=== PATIENT | female | born 1960 | race Caucasian/White ===

== ENCOUNTER 2018-12-18 07:51 | Observation (INO) | payer OTHER ==
[2018-12-18] MEDS ORDERED: Nitroglycerin 2% Ointment 1 INCH/1 GM Packet ONE (08:10)
[2018-12-18 08:28] LABS: Bilirubin Negative (Negative); Blood, Urine Negative (Negative); Clarity CLEAR (Clear); Glucose, Urine (Dipstick) Negative (Negative); Leukocyte Negative (Negative); Nitrite Negative (Negative); Protein, Urine (Dipstick) Negative (Neg-Trace); Specific Gravity, Urine 1.004 (1.002-1.036); Urobilinogen 0.2 mg/dL (0.2-1.0)
[2018-12-18] MEDS ORDERED: Acetaminophen 325 MG TAB PO PRN (09:41)
[2018-12-18] MEDS ORDERED: Potassium Chloride 20 MEQ TAB PO SCH (09:45)
[2018-12-18 10:27] LABS: Cardiac Risk 3.7 (Less than 4.5)
[2018-12-18 11:02] VITALS: BMI 42.3
--- NOTE | 2018-12-18 12:59 | HP ---
CHIEF COMPLAINT: Chest pain. HISTORY OF PRESENT ILLNESS: The patient is a very pleasant 58-year-old female with history of hypertension, who presented to the hospital with complaint of chest pain. The patient stated that yesterday she was cleaning her home, started having a sharp substernal chest pain. Denies any radiation. The patient stated that she was burping quite a bit. The patient stated that she took Tums and other antacids to help relieve her pain. She stated that her pain actually did improve. However, this morning, the patient started having this sharp pain again, which concerned her, so she came into the ER for further evaluation. She again denied any certain radiation of the pain to her back or to her arms. The patient denies any fevers, chills, any nausea, vomiting, or diarrhea, or any diaphoresis. The patient denies any recent shortness of breath on ambulation either. PAST MEDICAL HISTORY: History of breast cancer, she is status post chemotherapy about 10 years ago and then she was on tamoxifen; and also history of hypertension. PAST SURGICAL HISTORY: She has had a double mastectomy; she has had a hysterectomy with only removal of one ovary, she still has her left ovary in; tonsillectomy; and hernia repair. ALLERGIES: SHE IS ALLERGIC TO VICODIN. MEDICATIONS: She has; 1. Lisinopril 20 mg daily. 2. Amlodipine 10 mg daily. 3. Aspirin 81 mg daily. SOCIAL HISTORY: She denies any alcohol use, drug use, or smoking history. FAMILY HISTORY: Her father had a bypass at the age of 60. Mother had dementia. REVIEW OF SYSTEMS: All negative except for the ones mentioned above in the HPI. PHYSICAL EXAMINATION: VITAL SIGNS: As of the following; her temperature is 98.8, blood pressure is 108/60, heart rate of 80, and 98% on room air. GENERAL: She is awake, alert, and oriented x3. Does not appear in any distress. CV: S1 and S2 present. No murmurs, rubs, or gallops. HEENT: Normocephalic and atraumatic. No lymphadenopathy. Pupils are equal and reactive to light. Her mucous membranes are nice and moist. RESPIRATORY: Lungs are clear to auscultation. No rhonchi or wheezes noted. ABDOMEN: Soft and nontender. Bowel sounds are present x2. EXTREMITIES: No edema. Pedal pulses are present x2. NEUROVASCULAR: No focal deficits noted. MUSCULOSKELETAL: No body aches or pains, no muscular pain noted. SKIN: Warm and dry. No cuts, lesions, or bruises noted. LABORATORY RESULTS: As of the following; sodium was 140, potassium was 3.3, BUN of 20, creatinine 0.86. Her LFTs were normal. Her troponin x2 were negative. Her lipase was 19. Her LDL was 117 and her HDL was 47. She did also have a chest x-ray, in which no acute abnormalities noted. ASSESSMENT AND PLAN: The patient is a very pleasant 58-year-old female, who presents to the hospital with chest pain. 1. Atypical chest pain. We will also check a D-dimer. In this patient, the differential includes coronary artery disease versus gastroesophageal reflux disease versus possible PE; however, in this patient, she has also had chemotherapy and had a double mastectomy about 10 years ago, she states that she has not had an echocardiogram since after her chemotherapy that has been about 10 years, also she has never had a stress test, I will trend her troponins x3. If they are negative, I will stress her. Also, I will do an echocardiogram. Her EKG did have some indication of prolonged QTc, however, appears to be stable. Also, D-dimer is valid in this patient since her chest pain was very sharp in nature. I will also go ahead and continue her home medications. In the ER, it was noted that the patient's blood pressure was really elevated. However, upon talking to the patient, the patient stated that the cuff was small and it was placed on her forearm rather than her arm; however, her readings while I was in the room were stable. 2. History of hypertension. We will continue her home medications. 3. Obesity. The patient has been working out and has been able to sustain her heart rate at 150 and she does not have any chest pain or chest tightness when she is working out. 4. Deep venous thrombosis prophylaxis. We will put the patient on SCDs and also subcu Lovenox. Job ID: [id number]
[2018-12-19] MEDS ORDERED: Lisinopril 20 MG TAB PO SCH (09:00)
[2018-12-19] MEDS ORDERED: Enoxaparin Sodium 40 MG/0.4 ML SYRINGE SC SCH (09:00)
--- NOTE | 2018-12-19 11:52 | NM ---
CARDIAC SPECT: HISTORY: A 58-year-old female with chest pain, hypertension, family history of coronary artery disease. TECHNIQUE: A myocardial perfusion scan was performed using the single-isotope 2-day protocol with 33 Technetium 99m sestamibi injected intravenously for the stress and rest images. Pharmacologic stress with adeno sine is monitored and interpreted by Sheila Pardo PA-C. FINDINGS: Fairly homogeneous tracer distribution is seen on the myocardial segments on stress and rest images w ithout fixed or reversible defects. GATED SPECT LVEF: 57%. WALL MOTION EXAM: Normal. IMPRESSION: Normal myocardial perfusion scan. POS: C
[2018-12-19 12:28] VITALS: BP 136/84; TEMP 97.3
--- NOTE | 2018-12-19 23:43 | DIS ---
DATE OF ADMISSION: 12/18/2018 DATE OF DISCHARGE: 12/19/2018 DISCHARGE DIAGNOSES: 1. Atypical chest pain. 2. Hypertension. 3. . HOSPITAL COURSE: The patient is a very pleasant 58-year-old female with history of breast cancer, status post bilateral mastectomy and chemotherapy about 10 to 15 years ago, who presented to the hospital with complaints of chest pain. The patient described her chest pain as a very sharp chest pain. Her troponins x3 were negative. We ordered a D-dimer. D-dimer was negative. She also had an echocardiogram, which indicated a normal EF of 50% to 55% with just some mild sclerotic aortic valve. She also had a stress test perfusion study, which was negative. The patient was discharged home. She will follow up with her primary care. PHYSICAL EXAMINATION: VITAL SIGNS: As of the following; temperature 97.3, pulse 62, respirations 20, O2 saturation 99% on room air, and blood pressure 136/84. GENERAL: She is awake, alert, and oriented x3. Does not appear in any distress. CV: S1, S2 present. No murmurs, rubs, or gallops. ABDOMEN: Soft and nontender. Bowel sounds are present. EXTREMITIES: No edema. Pedal pulses are present x2. MEDICATIONS: Her discharge home medications are as of the following; 1. Wellbutrin 1 tablet p.o. daily. 2. Aspirin 81 mg daily. 3. Amlodipine 10 mg daily. 4. Lisinopril 20 mg daily. Again, the patient will be discharged home. She will follow up with her primary care doctor. All the tests were negative. Job ID: [id number]
== END 2018-12-19 14:27 | disposition home or self-care (01) ==
LOC: ERS 07:51 → 2SW 10:00
PROVIDERS: ADMIT Internal Medicine; ATTEND Internal Medicine
DX: R07.89 Other chest pain (principal); I10 Essential (primary) hypertension; Z85.3 Personal history of malignant neoplasm of breast; Z92.21 Personal history of antineoplastic chemotherapy; Z90.13 Acquired absence of bilateral breasts and nipples; Z90.710 Acquired absence of both cervix and uterus; Z90.721 Acquired absence of ovaries, unilateral; Z90.89 Acquired absence of other organs; Z88.5 Allergy status to narcotic agent; Z79.82 Long term (current) use of aspirin; Z79.899 Other long term (current) drug therapy; Z98.890 Other specified postprocedural states
CPT/HCPCS: 36415; 78452; 80061; 81003; 85379; 93005; 93017; 93306; 94760; 96372; A9500; G0378; J0153; J1650

== ENCOUNTER 2019-11-30 14:57 | Outpatient (CLI) | payer OTHER ==
--- NOTE | 2019-11-30 16:06 | MMO ---
Bilateral MAMMO Bilat Screen [facility]. CLINICAL HISTORY: Patient is 59 years old and is seen for screening. The patient has no family history of breast cancer. The patient has a history of bilateral Implants at age 49 and bilateral Mastectomy at age 48. VIEWS: The views performed were: bilateral craniocaudal; bilateral mediolateral oblique; and bilateral Implant displaced with tomosynthesis. FILMS COMPARED: The present examination has been compared to prior imaging studies performed at [facility] on 09/10/2014, 01/01/2016, 07/06/2017 and 06/08/2018. This study has been interpreted with the assistance of computer-aided detection. MAMMOGRAM FINDINGS: The breasts are almost entirely fat. Finding 1: There are stable benign appearing calcifications seen in both breasts. Finding 2: Normal implants are present. There are no suspicious masses, suspicious calcifications, or new areas of architectural distortion. IMPRESSION: THERE IS NO MAMMOGRAPHIC EVIDENCE OF MALIGNANCY. A ROUTINE FOLLOW-UP MAMMOGRAM IN 1 YEAR IS RECOMMENDED. THE RESULTS OF THIS EXAM WERE SENT TO THE PATIENT. ACR BI-RADS Category 2 - Benign finding MAMMOGRAPHY NOTE: 1. A negative mammogram report should not delay a biopsy if a dominant of clinically suspicious mass is present. 2. Approximately 10% to 15% of breast cancers are not detected by mammography. 3. Adenosis and dense breasts may obscure an underlying neoplasm. Reported by: MARYANN JAMES MD Electonically Signed: [id number]
== END 2019-11-30 14:58 | disposition home or self-care (01) ==
LOC: BICMAMMO 14:57
PROVIDERS: ATTEND Family Medicine
DX: Z12.31 Encounter for screening mammogram for malignant neoplasm of breast (principal); Z98.82 Breast implant status; Z90.13 Acquired absence of bilateral breasts and nipples
CPT/HCPCS: 77063; 77067

== ENCOUNTER 2021-04-18 08:49 | Outpatient (CLI) | payer OTHER | END 2021-04-18 08:50 | disposition home or self-care (01) | LOC: BICMAMMO 08:49 | PROVIDERS: ATTEND Family Medicine | DX: Z12.31 Encounter for screening mammogram for malignant neoplasm of breast (principal); Z98.82 Breast implant status; Z90.13 Acquired absence of bilateral breasts and nipples | CPT/HCPCS: 77063; 77067 ==

== ENCOUNTER 2021-09-05 15:39 | Outpatient (CLI) | payer OTHER | END 2021-09-05 15:40 | disposition home or self-care (01) | LOC: BICULT 15:39 | PROVIDERS: ATTEND Family Medicine | DX: E07.9 Disorder of thyroid, unspecified (principal); E04.2 Nontoxic multinodular goiter | CPT/HCPCS: 76536 ==

== ENCOUNTER 2023-02-07 15:26 | Inpatient (IN) | payer BC ==
[2023-02-07] MEDS ORDERED: Bisacodyl 5 MG TAB PO PRN (17:32)
[2023-02-07] MEDS ORDERED: Senokot S 8.6-50 MG TAB PO PRN (17:32)
[2023-02-07] MEDS ORDERED: Nitroglycerin 0.4 MG TAB (25 Tab Bottle) SL PRN (17:32)
[2023-02-07] MEDS ORDERED: Ondansetron PF 4 MG/2 ML Vial IVP PRN (17:32)
[2023-02-07] MEDS ORDERED: Ondansetron ODT 4 MG TAB PO PRN (17:32)
[2023-02-07] MEDS ORDERED: Electrolyte Replacement Protocol 1 EACH FS SCH (17:45)
[2023-02-07] MEDS ORDERED: Aspirin Chewable 81 MG TAB PO SCH (17:45)
[2023-02-07 17:47] LABS: CKMB 2.8 ng/mL (0-6.6)
[2023-02-07] MEDS ORDERED: Communication Order-Pharmacy FS ONE (18:23)
[2023-02-07] MEDS ORDERED: Morphine 2 MG/ML VIAL SLOW IVP PRN (18:26)
[2023-02-07 20:26] LABS: Magnesium 1.9 mg/dL (1.6-2.6)
[2023-02-07] MEDS: Acetaminophen 325 MG TAB PO PRN (20:27)
[2023-02-07 20:36] LABS: Troponin I 0.442 ng/mL (< 0.028)
[2023-02-07] MEDS ORDERED: Magnesium 2 GM/50 ML(in water) 2 GM in Premix Bag 1 BAG IVPB SCH (21:30)
[2023-02-07] MEDS: Nitroglycerin 2% Ointment 1 INCH/1 GM Packet TOP SCH (21:47)
[2023-02-07 22:03] VITALS: BMI 42.3
[2023-02-08] MEDS ORDERED: Enoxaparin 120 MG/0.8 ML SYRINGE SC SCH (01:15)
[2023-02-08 01:50] LABS: Critical Call Chem Troponin I RESULT DECREASING; Troponin I 0.354 ng/mL (< 0.028)
[2023-02-08] MEDS: Acetaminophen 325 MG TAB PO PRN (04:14)
[2023-02-08 05:14] LABS: #Basophils 0.1 thou/uL (0.0-0.2); #Eosinphils 0.1 thou/uL (0.0-0.7); #Lymphocytes 2.2 thou/uL (1.20-3.40); %Basophils 0.8 % (0.0-1.0); %Eosinophils 0.5 % (0.0-10.0); %Lymphocytes 20.9 % (21.0-51.0); %Monocytes 9.9 % (0.0-10.0); %Neutrophils 67.9 % (42.0-75.0); Hemoglobin 13.7 g/dL (12.0-16.0); Mean Corpuscular HGB CONC 33.9 g/dL (32.0-36.0); Mean Corpuscular Hemoglobin 32.4 pg (27.0-31.0); Mean Corpuscular Volume 95.5 fl (78.0-98.0); Mean Platelet Volume 7.8 fL (7.4-10.4); Platelet Count 360 10x3/uL (130-400); RBC Distribution Width 12.4 % (11.5-14.5); Red Blood Cell (RBC) Count 4.24 mill/uL (4.20-5.40); White Blood Cell (WBC) Count 10.3 10x3/uL (4.8-10.8)
[2023-02-08 05:30] LABS: Hemoglobin A1c 4.8 % (4.0-6.0)
[2023-02-08 05:36] LABS: Anion Gap 12 mmol/L (10-20); BUN (Urea Nitrogen) 13 mg/dL (9.8-20.1); Calc. Creatinine Clearance 153 mL/min (70-130); Calcium 8.8 mg/dL (7.8-10.44); Carbon Dioxide 22 mmol/L (23-31); Cardiac Risk 4.9 (Less than 4.5); Chloride 108 mmol/L (98-107); Cholesterol 156 mg/dl (< 200 Desired); Estimated GFR 91; Glucose 97 mg/dL (80-115); HDL Cholesterol 32 mg/dL (>60 Neg Risk); LDL Cholesterol, Calculated 103 mg/dL; Potassium 3.2 mmol/L (3.5-5.1); Sodium 139 mmol/L (136-145); Triglycerides 107 mg/dL (Less than 150)
[2023-02-08 05:43] LABS: Critical Call Chem Troponin I RESULT DECREASING; Troponin I 0.279 ng/mL (< 0.028)
[2023-02-08] MEDS: Nitroglycerin 2% Ointment 1 INCH/1 GM Packet TOP SCH ×3 (06:14→20:54)
[2023-02-08 07:32] LABS: Magnesium 2.1 mg/dL (1.6-2.6)
[2023-02-08] MEDS ORDERED: Potassium Chloride 20 MEQ TAB PO SCH (08:00)
[2023-02-08] MEDS: Aspirin Chewable 81 MG TAB PO SCH (08:43)
[2023-02-08] MEDS: Enoxaparin 120 MG/0.8 ML SYRINGE SC SCH ×2 (11:02→20:53)
[2023-02-08] MEDS ORDERED: Communication Order-Pharmacy FS SCH (14:45)
[2023-02-08] MEDS: Atorvastatin Calcium 40 MG TAB PO SCH (20:53)
[2023-02-09 05:29] LABS: #Basophils 0.1 thou/uL (0.0-0.2); #Eosinphils 0.2 thou/uL (0.0-0.7); #Lymphocytes 2.3 thou/uL (1.20-3.40); #Neutrophils 4.5 thou/uL (1.40-6.50); %Basophils 1.2 % (0.0-1.0); %Eosinophils 2.1 % (0.0-10.0); %Lymphocytes 28.8 % (21.0-51.0); %Neutrophils 55.8 % (42.0-75.0); Hemoglobin 13.7 g/dL (12.0-16.0); Mean Corpuscular HGB CONC 33.4 g/dL (32.0-36.0); Mean Corpuscular Hemoglobin 32.2 pg (27.0-31.0); Mean Corpuscular Volume 96.3 fl (78.0-98.0); Mean Platelet Volume 7.5 fL (7.4-10.4); Platelet Count 364 10x3/uL (130-400); RBC Distribution Width 12.2 % (11.5-14.5); Red Blood Cell (RBC) Count 4.25 mill/uL (4.20-5.40)
[2023-02-09 05:55] LABS: Anion Gap 11 mmol/L (10-20); BUN (Urea Nitrogen) 12 mg/dL (9.8-20.1); Calc. Creatinine Clearance 148 mL/min (70-130); Calcium 8.6 mg/dL (7.8-10.44); Carbon Dioxide 22 mmol/L (23-31); Chloride 109 mmol/L (98-107); Estimated GFR 89; Glucose 93 mg/dL (80-115); Sodium 138 mmol/L (136-145)
[2023-02-09] MEDS: Nitroglycerin 2% Ointment 1 INCH/1 GM Packet TOP SCH (05:55)
[2023-02-09] MEDS: Aspirin Chewable 81 MG TAB PO SCH (05:56)
[2023-02-09] MEDS ORDERED: Sodium Chloride 0.9% 1,000 ML IV SCH ×2 (06:00→08:45)
[2023-02-09] MEDS ORDERED: Heparin 10,000 UNITS/ 10 ML VIAL ONE (06:28)
[2023-02-09] MEDS ORDERED: Lidocaine 1% (PF) 30 ML VIAL ONE (06:28)
[2023-02-09] MEDS ORDERED: fentaNYL 50 mcg/mL 1 mL Vial ONE ×2 (07:09→11:46)
[2023-02-09] MEDS ORDERED: Midazolam HCl 2 mg/2 ml Vial ONE (07:10)
[2023-02-09] MEDS ORDERED: Nitroglycerin 50 MG/250 ML BOT 250 ML ONE (07:48)
[2023-02-09] MEDS ORDERED: TICAGRELOR 90 MG TABLET ONE ×2 (07:52→07:54)
[2023-02-09] MEDS ORDERED: Bivalirudin 250 MG VIAL ONE (07:56)
[2023-02-09] MEDS ORDERED: Acetaminophen 500 MG TAB ONE (09:25)
[2023-02-09] MEDS ORDERED: Morphine 2 MG/ML VIAL ONE (11:26)
[2023-02-09] MEDS ORDERED: fentaNYL 50 mcg/mL 1 mL Vial SLOW IVP SCH (11:38)
[2023-02-09] MEDS ORDERED: Iopamidol 370 76% 100 ML VIAL ONE (12:29)
[2023-02-09] MEDS: Acetaminophen 325 MG TAB PO PRN (15:56)
[2023-02-09] MEDS: Atorvastatin Calcium 40 MG TAB PO SCH (22:12)
[2023-02-09] MEDS: TICAGRELOR 90 MG TABLET PO SCH (22:12)
[2023-02-10 04:55] LABS: #Basophils 0.1 thou/uL (0.0-0.2); #Eosinphils 0.2 thou/uL (0.0-0.7); #Lymphocytes 1.7 thou/uL (1.20-3.40); #Monocytes 0.8 thou/uL (0.11-0.59); #Neutrophils 6.3 thou/uL (1.40-6.50); %Basophils 0.6 % (0.0-1.0); %Eosinophils 1.9 % (0.0-10.0); %Lymphocytes 19.2 % (21.0-51.0); %Monocytes 8.9 % (0.0-10.0); %Neutrophils 69.4 % (42.0-75.0); Hemoglobin 13.3 g/dL (12.0-16.0); Mean Corpuscular HGB CONC 32.2 g/dL (32.0-36.0); Mean Corpuscular Hemoglobin 31.2 pg (27.0-31.0); Mean Corpuscular Volume 96.7 fl (78.0-98.0); Mean Platelet Volume 7.5 fL (7.4-10.4); Platelet Count 387 10x3/uL (130-400); RBC Distribution Width 12.2 % (11.5-14.5); Red Blood Cell (RBC) Count 4.26 mill/uL (4.20-5.40); White Blood Cell (WBC) Count 9.1 10x3/uL (4.8-10.8)
[2023-02-10 05:24] LABS: ALT (SGPT) 12 U/L (8-55); AST (SGOT) 21 U/L (5-34); Alkaline Phosphatase 73 U/L (40-110); Anion Gap 12 mmol/L (10-20); BUN (Urea Nitrogen) 10 mg/dL (9.8-20.1); Bilirubin, Total 0.5 mg/dL (0.2-1.2); Calc. Creatinine Clearance 155 mL/min (70-130); Carbon Dioxide 21 mmol/L (23-31); Chloride 110 mmol/L (98-107); Estimated GFR 93; Globulin 2.6 g/dL (2.4-3.5); Glucose 99 mg/dL (80-115); Potassium 3.6 mmol/L (3.5-5.1); Protein, Total 6.6 g/dL (5.8-8.1); Sodium 139 mmol/L (136-145)
[2023-02-10 08:31] VITALS: BP 164/76; TEMP 98.6
[2023-02-10] MEDS: TICAGRELOR 90 MG TABLET PO SCH (08:44)
[2023-02-10] MEDS ORDERED: Aspirin 81 mg Enteric Coated Tablet PO SCH (09:00)
== END 2023-02-10 11:10 | disposition home or self-care (01) | DRG 247 ==
LOC: ERS 15:26 → 2SW 17:00 → OBSVTOIN 02-08 16:55
PROVIDERS: ADMIT Family Medicine; ATTEND Internal Medicine
PROC: 027034Z Dilation of Coronary Artery, One Artery with Drug-eluting Intraluminal Device, Percutaneous Approach (ICD-10-PCS; principal; 2023-02-09)
PROC: 4A023N7 Measurement of Cardiac Sampling and Pressure, Left Heart, Percutaneous Approach (ICD-10-PCS; 2023-02-09)
PROC: B2111ZZ Fluoroscopy of Multiple Coronary Arteries using Low Osmolar Contrast (ICD-10-PCS; 2023-02-09)
PROC: B2151ZZ Fluoroscopy of Left Heart using Low Osmolar Contrast (ICD-10-PCS; 2023-02-09)
DX: I21.4 Non-ST elevation (NSTEMI) myocardial infarction (principal); Z68.41 Body mass index [BMI] 40.0-44.9, adult; K21.9 Gastro-esophageal reflux disease without esophagitis; I25.10 Atherosclerotic heart disease of native coronary artery without angina pectoris; E87.6 Hypokalemia; E66.01 Morbid (severe) obesity due to excess calories; E78.00 Pure hypercholesterolemia, unspecified; E78.5 Hyperlipidemia, unspecified; I12.9 Hypertensive chronic kidney disease with stage 1 through stage 4 chronic kidney disease, or unspecified chronic kidney disease; N18.2 Chronic kidney disease, stage 2 (mild); G47.30 Sleep apnea, unspecified; Z88.5 Allergy status to narcotic agent; Z79.899 Other long term (current) drug therapy; Z79.82 Long term (current) use of aspirin; Z85.3 Personal history of malignant neoplasm of breast; Z86.718 Personal history of other venous thrombosis and embolism; Z98.890 Other specified postprocedural states; Z90.710 Acquired absence of both cervix and uterus; Z90.49 Acquired absence of other specified parts of digestive tract
CPT/HCPCS: 36415; 80048; 80053; 80061; 82553; 83036; 83735; 84443; 84484; 85025; 85347; 92928; 93005; 93010; 93458; 96365; 96372; 99152; 99153; C1725; C1769; C1876; C1887; C9600; G0378; J0583; J1644; J1650; J2001; J2250; J2272; J3010; J3475; J7050; Q9967

== ENCOUNTER 2023-06-30 19:30 | Outpatient (CLI) | payer BC | END 2023-06-30 19:31 | disposition home or self-care (01) | LOC: SLEEPLAB 19:30 | PROVIDERS: ATTEND Family Medicine | DX: G47.33 Obstructive sleep apnea (adult) (pediatric) (principal); I10 Essential (primary) hypertension; I25.10 Atherosclerotic heart disease of native coronary artery without angina pectoris; R06.83 Snoring; G47.10 Hypersomnia, unspecified; E66.9 Obesity, unspecified; Z68.41 Body mass index [BMI] 40.0-44.9, adult | CPT/HCPCS: 95811 ==

== ENCOUNTER 2024-09-04 12:28 | Inpatient (IN) | payer BC ==
[~2024-09-04 12:28] MED LIST: Iopamidol 370 76% 100 ML VIAL ONE
[2024-09-04] MEDS ORDERED: Acetaminophen 325 MG TAB PO PRN (12:52)
[2024-09-04] MEDS ORDERED: Guaifenesin DM 100-10/5 ML UDCUP PO PRN (12:52)
[2024-09-04] MEDS ORDERED: Ondansetron ODT 4 MG TAB PO PRN (12:52)
[2024-09-04] MEDS ORDERED: Senokot S 8.6-50 MG TAB PO PRN (12:52)
[2024-09-04] MEDS ORDERED: Ondansetron PF 4 MG/2 ML Vial IVP PRN (12:52)
[2024-09-04] MEDS ORDERED: Nitroglycerin 0.4 MG TAB (25 Tab Bottle) SL PRN (12:54)
[2024-09-04] MEDS ORDERED: Pantoprazole DR 40 MG TAB PO PRN (12:54)
[2024-09-04] MEDS: Heparin 25,000 units/D5W 500 ML IVPB SCH (14:00)
[2024-09-04 14:13] LABS: Hematocrit 46.7 % (36.0-47.0); Hemoglobin 14.7 g/dL (12.0-16.0); Platelet Count 345 10x3/uL (130-400)
[2024-09-04 14:58] LABS: INR-International Normal Ratio 1.1; Prothrombin Time 13.9 sec (12.0-14.7)
[2024-09-04 15:43] LABS: Troponin I 0.092 ng/mL (< 0.028)
[2024-09-04] MEDS: Atorvastatin Calcium 40 MG TAB PO SCH (20:52)
[2024-09-04 21:35] LABS: PTT Greater than 250.0 sec (22.9-36.1)
[2024-09-04 21:37] LABS: Bacteria/HPF None Seen HPF (None Seen); Bilirubin Negative (Negative); Blood, Urine Negative (Negative); Clarity Clear (Clear); Glucose, Urine (Dipstick) Normal (Negative); Ketone, Urine 10 mg/dL (Negative); Leukocyte Negative Leu/uL (Negative); Nitrite Negative (Negative); Protein, Urine (Dipstick) Negative (Neg-Trace); Squamous Epithelial 0-3 HPF (0-3); Urobilinogen Normal mg/dL (Less than 2); WBC/HPF 0-3 HPF (0-3); pH, Urine 6.5 (5.0-9.0)
[2024-09-04 21:59] LABS: Specific Gravity, Urine 1.053 (1.002-1.036)
[2024-09-05 06:25] LABS: %Basophils 0.9 % (0.0-1.0); %Eosinophils 0.5 % (0.0-10.0); %Lymphocytes 16.2 % (21.0-51.0); %Monocytes 10.1 % (0.0-10.0); Hematocrit 43.4 % (36.0-47.0); Hemoglobin 14.2 g/dL (12.0-16.0); Mean Corpuscular HGB CONC 32.7 g/dL (32.0-36.0); Mean Corpuscular Hemoglobin 31.8 pg (27.0-31.0); Mean Corpuscular Volume 97.1 fL (78.0-98.0); Mean Platelet Volume 9.9 fL (7.4-10.4); Platelet Count 363 10x3/uL (130-400); RBC Distribution Width 13.2 % (11.5-14.5); Red Blood Cell (RBC) Count 4.47 mill/uL (4.20-5.40)
[2024-09-05 06:39] LABS: Anion Gap 14 mmol/L (10-20); BUN (Urea Nitrogen) 9 mg/dL (9.8-20.1); Calc. Creatinine Clearance 148 mL/min (70-130); Calcium 8.6 mg/dL (7.8-10.44); Carbon Dioxide 22 mmol/L (23-31); Chloride 106 mmol/L (98-107); Estimated GFR 87; Glucose 112 mg/dL (80-115); Potassium 3.5 mmol/L (3.5-5.1); Sodium 138 mmol/L (136-145)
[2024-09-05 06:49] LABS: PTT 121.4 sec (22.9-36.1)
[2024-09-05] MEDS ORDERED: Electrolyte Replacement Protocol FS PRN (08:00)
[2024-09-05] MEDS: Isosorbide Mononitrate 30 MG ER.TAB PO SCH (08:13)
[2024-09-05] MEDS: Pantoprazole DR 40 MG TAB PO SCH (08:13)
[2024-09-05] MEDS: Aspirin 81 mg Enteric Coated Tablet PO SCH (08:13)
[2024-09-05] MEDS: Cholecalciferol 1,000 UNITS (25 MCG) TAB PO SCH (08:18)
[2024-09-05] MEDS: Potassium Chloride 20 MEQ TAB PO SCH (08:18)
[2024-09-05] MEDS ORDERED: Isosorbide Mononitrate 30 MG ER.TAB PO SCH (09:00)
[2024-09-05] MEDS ORDERED: Enoxaparin 40 MG (0.4 mL) SYRINGE SC SCH (09:00)
[2024-09-05 09:20] LABS: Magnesium 2.1 mg/dL (1.6-2.6)
[2024-09-05 10:04] LABS: Potassium 3.5 mmol/L (3.5-5.1)
[2024-09-05] MEDS: Electrolyte Replacement Protocol 1 EACH FS ONE (12:58)
[2024-09-05 13:01] LABS: Potassium 3.9 mmol/L (3.5-5.1)
[2024-09-05] MEDS: diphenhydrAMINE 25 MG CAP PO PRN (21:14)
[2024-09-05] MEDS: Senokot S 8.6-50 MG TAB PO SCH (21:15)
[2024-09-06 04:30] LABS: #Basophils 0.12 10x3/uL (0.0-0.2); %Basophils 1.2 % (0.0-1.0); %Eosinophils 1.4 % (0.0-10.0); %Lymphocytes 25.6 % (21.0-51.0); %Monocytes 11.8 % (0.0-10.0); %Neutrophils 59.7 % (42.0-75.0); Hematocrit 42.7 % (36.0-47.0); Hemoglobin 13.6 g/dL (12.0-16.0); Mean Corpuscular HGB CONC 31.9 g/dL (32.0-36.0); Mean Corpuscular Hemoglobin 31.6 pg (27.0-31.0); Mean Corpuscular Volume 99.1 fL (78.0-98.0); Mean Platelet Volume 10.4 fL (7.4-10.4); Platelet Count 363 10x3/uL (130-400); RBC Distribution Width 13.2 % (11.5-14.5); Red Blood Cell (RBC) Count 4.31 mill/uL (4.20-5.40)
[2024-09-06 04:45] LABS: Anion Gap 15 mmol/L (10-20); BUN (Urea Nitrogen) 12 mg/dL (9.8-20.1); Calc. Creatinine Clearance 167 mL/min (70-130); Calcium 8.7 mg/dL (7.8-10.44); Carbon Dioxide 20 mmol/L (23-31); Chloride 107 mmol/L (98-107); Estimated GFR 98; Glucose 100 mg/dL (80-115); Potassium 3.5 mmol/L (3.5-5.1); Sodium 138 mmol/L (136-145)
[2024-09-06] MEDS: Heparin 10,000 UNITS/ 10 ML VIAL SLOW IVP SCH (05:28)
[2024-09-06 07:09] LABS: Phosphorus 3.1 mg/dL (2.3-4.7)
[2024-09-06 07:43] VITALS: BMI 43.4
[2024-09-06] MEDS: Potassium Chloride 20 MEQ TAB PO SCH (08:40)
[2024-09-06] MEDS: Magnesium 2 GM/50 ML(in water) 2 GM in Premix 1 BAG IVPB SCH (08:41)
[2024-09-06] MEDS: Apixaban 5 MG TAB PO SCH (10:47)
[2024-09-06 14:38] LABS: Hemoglobin 13.7 g/dL (12.0-16.0); Platelet Count 409 10x3/uL (130-400)
[2024-09-06 14:57] LABS: Potassium 4.3 mmol/L (3.5-5.1)
[2024-09-07 11:36] VITALS: BP 112/75; TEMP 98.1
== END 2024-09-07 13:55 | disposition home or self-care (01) | DRG 175 ==
LOC: OBS 12:28 → OBSVTOIN 13:51 → CCU 14:18 → T4-B 09-06 17:38
PROVIDERS: ADMIT Family Medicine; ATTEND Internal Medicine
DX: I26.92 Saddle embolus of pulmonary artery without acute cor pulmonale (principal); I21.A1 Myocardial infarction type 2; J96.01 Acute respiratory failure with hypoxia; I82.411 Acute embolism and thrombosis of right femoral vein; Z68.41 Body mass index [BMI] 40.0-44.9, adult; E78.5 Hyperlipidemia, unspecified; I25.10 Atherosclerotic heart disease of native coronary artery without angina pectoris; E66.9 Obesity, unspecified; E87.6 Hypokalemia; N18.2 Chronic kidney disease, stage 2 (mild); I12.9 Hypertensive chronic kidney disease with stage 1 through stage 4 chronic kidney disease, or unspecified chronic kidney disease; D72.829 Elevated white blood cell count, unspecified; I35.1 Nonrheumatic aortic (valve) insufficiency; Z85.3 Personal history of malignant neoplasm of breast; Z95.5 Presence of coronary angioplasty implant and graft; Z88.5 Allergy status to narcotic agent; Z79.02 Long term (current) use of antithrombotics/antiplatelets; Z79.82 Long term (current) use of aspirin; Z79.899 Other long term (current) drug therapy; Z90.13 Acquired absence of bilateral breasts and nipples
CPT/HCPCS: 36415; 71275; 80048; 81001; 83735; 84100; 85014; 85018; 85025; 85049; 85610; 85730; 93306; 93970; J1644; J3475; Q9967